=== PATIENT | female | born 1980 | race American Indian/Alaskan Native ===

== ENCOUNTER 2017-03-07 00:38 | Emergency (ER) | payer SELFPAY ==
[2017-03-07] MEDS ORDERED: KEPPRA 1,000 MG/NS 0.75% 100ML 1,000 MG/100 ML BAG IV ONE (01:03)
[2017-03-07 01:23] LABS: Basophils # (Auto) 0.1 K/mm3 (0.0-0.1); Basophils % (Auto) 1.2 % (0.0-1.8); Eosinophils # (Auto) 0.1 K/mm3 (0.0-0.4); Eosinophils % (Auto) 1.9 % (0.0-4.3); Hematocrit 35.6 % (30.3-42.9); Hemoglobin 11.6 gm/dl (10.1-14.3); Lymphocytes # (Auto) 1.8 K/mm3 (1.2-5.4); Lymphocytes % (Auto) 38.2 % (13.4-35.0); Mean Corpuscular HGB Conc 33 % (30-34); Mean Corpuscular Volume 75 fl (79-97); Monocytes # (Auto) 0.3 K/mm3 (0.0-0.8); Monocytes % (Auto) 7.5 % (0.0-7.3); Platelet Count 277 K/mm3 (140-440); Red Blood Count 4.74 M/mm3 (3.65-5.03); Red Cell Distribution Width 14.7 % (13.2-15.2)
[2017-03-07 01:26] LABS: Mean Corpuscular Hemoglobin 24 pg (28-32)
[2017-03-07 01:43] LABS: BUN/Creatinine Ratio 15; Blood Urea Nitrogen 9 mg/dL (7-17); Calcium 8.5 mg/dL (8.4-10.2); Hemolysis Index 45
[2017-03-07] MEDS ORDERED: BENADRYL IV ONE (02:01)
[2017-03-07] MEDS ORDERED: REGLAN IV ONE (02:02)
[2017-03-07 02:09] LABS: Bilirubin,Urine NEG (Negative); Blood,Urine SM (Negative); Color,Urine Yellow (Yellow); Mucus,Urine FEW /HPF; Nitrite,Urine NEG (Negative); Protein,Urine <15 mg/dL mg/dL (Negative); Urobilinogen,Urine < 2.0 mg/dL (<2.0)
[2017-03-07 02:11] LABS: HCG Qualitative,Urine Negative (Negative)
[2017-03-07 02:22] VITALS: BP 145/82
[2017-03-07] MEDS ORDERED: K-DUR PO ONE (02:36)
--- NOTE | 2017-03-07 02:38 | Emergency Department Report ---
ED General Adult HPI - General Chief complaint: Headache Stated complaint: SEIZURE Time Seen by Provider: 03/07/17 02:35 Source: patient, RN notes reviewed Mode of arrival: Stretcher Limitations: No Limitations - History of Present Illness Initial comments: This is a 37-year-old female who is previously unknown to this provider, she reports a past medical history of seizure disorder, and supposed to be on Keppra , 500 mg twice daily, recently ran out of her medications. Patient reports that she's not been or delivered or given within the past 2 months. She presents to the ER requesting a refill on her Keppra medication, and complaining of headache. The headache is frontal and throbbing. It is not sudden or thunderclap in nature. It did not reach maximal intensity within an hour. It is consistent with prior headaches. Patient reports that while she has not had a seizure, she feels like this headache is the same headache that she always gets when she is "about to have a seizure." The headache does not radiate anywhere. It was relieved with diphenhydramine and Reglan, which were prescribed by myself. -: Gradual Location: head Severity scale (0 -10): 4 Quality: aching Improves with: medication Associated Symptoms: headaches. denies: confusion, chest pain, cough, diaphoresis, fever/chills, loss of appetite, malaise, shortness of breath, syncope, weakness - Related Data Previous Rx's Medication Instructions Recorded Last Taken Type levETIRAcetam [Keppra TAB] 500 mg PO BID #60 tablet 03/07/17 Unknown Rx Allergies Allergy/AdvReac Type Severity Reaction Status Date / Time No Known Allergies Allergy Verified 03/07/17 03:11 ED Review of Systems ROS: Stated complaint: SEIZURE Other details as noted in HPI ED Past Medical Hx - Past Medical History Previous Medical History?: Yes Hx Seizures: Yes (for 3 years) - Surgical History Past Surgical History?: No - Social History Smoking Status: Never Smoker Substance Use Type: None - Medications Home Medications: Home Medications Medication Instructions Recorded Confirmed Last Taken Type levETIRAcetam [Keppra TAB] 500 mg PO BID #60 tablet 03/07/17 Unknown Rx ED Physical Exam - General Limitations: No Limitations General appearance: alert, in no apparent distress - Head Head exam: Present: atraumatic, normocephalic - Eye Eye exam: Present: normal appearance, PERRL, EOMI, other (visual acuity intact to finger counting, color perception, reading at a close distance). Absent: nystagmus - ENT ENT exam: Present: normal exam, normal orophraynx, mucous membranes moist, normal external ear exam - Neck Neck exam: Present: normal inspection, full ROM - Respiratory Respiratory exam: Present: normal lung sounds bilaterally. Absent: respiratory distress, chest wall tenderness - Cardiovascular Cardiovascular Exam: Present: regular rate, normal rhythm, normal heart sounds. Absent: systolic murmur, diastolic murmur, rubs, gallop - GI/Abdominal GI/Abdominal exam: Present: soft, normal bowel sounds. Absent: distended, tenderness, guarding, rebound, rigid, pulsatile mass - Extremities Exam Extremities exam: Present: normal inspection, full ROM, normal capillary refill. Absent: pedal edema, joint swelling, calf tenderness - Back Exam Back exam: Present: normal inspection, full ROM. Absent: tenderness, CVA tenderness (R), paraspinal tenderness, vertebral tenderness - Neurological Exam Neurological exam: Present: alert, oriented X3, CN II-XII intact, normal gait, other (Extraocular movements intact. Tongue midline. No facial droop. Facial sensation intact to light touch in the V1, V2, V3 distribution bilaterally. 5 and 5 strength in 4 extremities.. Sensation is intact to light touch in 4 extremities.). Absent: motor sensory deficit - Psychiatric Psychiatric exam: Present: normal affect, normal mood - Skin Skin exam: Present: warm, dry, intact, normal color. Absent: rash ED Course Vital Signs 03/07/17 03/07/17 03/07/17 00:44 00:51 02:21 Temperature 98.1 F Pulse Rate 88 80 Respiratory 18 18 16 Rate Blood Pressure 158/99 Blood Pressure 158/99 145/82 [Left] O2 Sat by Pulse 100 100 100 Oximetry ED Medical Decision Making - Lab Data Result diagrams: 03/07/17 00:55 03/07/17 00:55 Vital Signs 03/07/17 03/07/17 03/07/17 00:44 00:51 02:21 Temperature 98.1 F Pulse Rate 88 80 Respiratory 18 18 16 Rate Blood Pressure 158/99 Blood Pressure 158/99 145/82 [Left] O2 Sat by Pulse 100 100 100 Oximetry Lab Results 03/07/17 03/07/17 03/07/17 Range/Units 00:55 00:55 01:37 WBC 4.6 (4.5-11.0) K/mm3 RBC 4.74 (3.65-5.03) M/mm3 Hgb 11.6 (10.1-14.3) gm/dl Hct 35.6 (30.3-42.9) % MCV 75 L (79-97) fl MCH 24 L (28-32) pg MCHC 33 (30-34) % RDW 14.7 (13.2-15.2) % Plt Count 277 (140-440) K/mm3 Lymph % (Auto) 38.2 H (13.4-35.0) % [place] % (Auto) 7.5 H (0.0-7.3) % Eos % (Auto) 1.9 (0.0-4.3) % Baso % (Auto) 1.2 (0.0-1.8) % Lymph # 1.8 (1.2-5.4) K/mm3 [place] # 0.3 (0.0-0.8) K/mm3 Eos # 0.1 (0.0-0.4) K/mm3 Baso # 0.1 (0.0-0.1) K/mm3 Seg Neutrophils % 51.2 (40.0-70.0) % Seg Neutrophils # 2.4 (1.8-7.7) K/mm3 Sodium 137 (137-145) mmol/L Potassium 3.2 L (3.6-5.0) mmol/L Chloride 99.3 (98-107) mmol/L Carbon Dioxide 23 (22-30) mmol/L Anion Gap 18 mmol/L BUN 9 (7-17) mg/dL Creatinine 0.6 L (0.7-1.2) mg/dL Estimated GFR > 60 ml/min BUN/Creatinine Ratio 15 % Glucose 84 (65-100) mg/dL Calcium 8.5 (8.4-10.2) mg/dL Urine Color Yellow (Yellow) Urine Turbidity Clear (Clear) Urine pH 6.0 (5.0-7.0) Ur Specific [place] 1.019 (1.003-1.030) Urine Protein <15 mg/dl (Negative) mg/dL Urine Glucose (UA) Neg (Negative) mg/dL Urine Ketones Neg (Negative) mg/dL Urine Blood Sm (Negative) Urine Nitrite Neg (Negative) Urine Bilirubin Neg (Negative) Urine Urobilinogen < 2.0 (<2.0) mg/dL Ur Leukocyte Esterase Neg (Negative) Urine WBC (Auto) 2.0 (0.0-6.0) /HPF Urine RBC (Auto) 2.0 (0.0-6.0) /HPF U Epithel Cells (Auto) < 1.0 (0-13.0) /HPF Urine Mucus Few /HPF Urine HCG, Qual Negative (Negative) - Radiology Data Radiology results: report reviewed, image reviewed Noncontrast CT scan of the brain, interpreted by radiology: No acute disease - Medical Decision Making Differential diagnosis, including but not limited to: Medication refill, migraine headache, tension headache, cluster headache Assessment and plan: That he [id number] female requesting medication refill and complaining of headache. She is afebrile with reassuring vital signs, walks with a steady gait, clinically sober, has a GCS of 15, with an NIH score of 0. Her laboratory studies are unremarkable, her neurologic examination is age appropriate and within normal limits, no noncontrast CT scan of the brain, ordered by nursing prior to my evaluation, was negative for acute disease. Based on the history and physical, I do not find the patient's presentation to be consistent with ischemic or hemorrhagic stroke, and she does not have any physical exam findings or historical findings to suggest meningitis or intracranial hemorrhage/infection. The patient's potassium was repleted, she was able to tolerate liquid feeds, and she will be discharged with a prescription for her Keppra medication. Critical care attestation.: If time is entered above; I have spent that time in minutes in the direct care of this critically ill patient, excluding procedure time. ED Disposition Clinical Impression: Headache, Medication refill Disposition: DC-01 TO HOME OR SELFCARE Is pt being admited?: No Does the pt Need Aspirin: No Condition: Stable Instructions: Recurrent Seizures Adult (ED) Additional Instructions: Take medication as directed. Follow up with the primary care doctor or neurology specialist within the next 3-4 weeks. Return to the ER readily with new pain, worsened pain, migration of pain, fevers, chills, lethargy, irritability, projectile vomiting, change in mental status, confusion, inability to tolerate liquid feeds. Follow up with any of the listed physicians within the recommended timeframe. Referrals: JOSE MANUEL DURAN MD [Primary Care Provider] - 3-5 Days NASREEN CAMPA MD [Staff Physician] - 3-5 Days CHUY GA MD [Staff Physician] - 3-5 Days DARIO CAIN MD [Referring] - 3-5 Days
--- NOTE | 2017-03-07 02:47 | Cat Scan Report ---
FINAL REPORT EXAM: CT HEAD/BRAIN WO CON HISTORY: Headache COMPARISON: None available. TECHNIQUE: Axial images obtained skull base through vertex. FINDINGS: No acute intracranial hemorrhage, midline shift or pathologic extra axial fluid collection. Ventricles and cisterns are normal in size and configuration for the patient's age. Hawthorne-white differentiation preserved. Calvarium grossly intact. The visualized ocular globes are grossly unremarkable. Visualized para-nasal sinuses and mastoid air cells are clear. IMPRESSION: No grossly acute intracranial abnormality.
== END 2017-03-07 04:22 | disposition home or self-care (01) ==
LOC: ED 00:38
DX: R51 Headache (principal)
CPT/HCPCS: 36415; 70450; 80048; 81001; 81025; 85025; 96374; 96375; 99285; J1200; J1953; J2765

== ENCOUNTER 2019-03-11 22:06 | Emergency (ER) | payer SELFPAY ==
[2019-03-11 22:23] VITALS: BP 160/113
--- NOTE | 2019-03-11 22:33 | Emergency Department Report ---
ED Alcohol HPI - General Chief Complaint: Alcohol Stated Complaint: ALCOHOL WITHDRAWL Time Seen by Provider: 03/11/19 22:31 Source: patient Mode of arrival: Ambulatory Limitations: No Limitations - History of Present Illness Initial Comments: Patient is a 39-year-old female that presents emergency room with complaints of wanting detox. Patient states her last drink was yesterday at noon. Patient states she had a long history of drinking. Patient has a past medical history of seizures and is currently taking Keppra. Patient she has not had a seizure for many years. Patient denies suicidal or homicidal ideation. Patient denies depression. Patient denies anxiety. Patient denies any physical complaints. MD Complaint: desires rehab Chronic Alcohol Use: Yes Previous Visits for Alcohol Intoxication?: No Recent Trauma: No Associated Symptoms: denies other symptoms. denies: nausea, vomiting, syncope, seizure, diaphoresis, tremors, abdominal pain, hematemesis, melena, depression, suicidality Treatments Prior to Arrival: none - Related Data Previous Rx's Medication Instructions Recorded Last Taken Type levETIRAcetam [Keppra TAB] 500 mg PO BID #60 tablet 03/07/17 Unknown Rx Allergies Allergy/AdvReac Type Severity Reaction Status Date / Time No Known Allergies Allergy Verified 03/07/17 03:11 ED Review of Systems ROS: Stated complaint: ALCOHOL WITHDRAWL Other details as noted in HPI Constitutional: denies: chills, fever Eyes: denies: eye pain, eye discharge, vision change ENT: denies: ear pain, throat pain Respiratory: denies: cough, shortness of breath, wheezing Cardiovascular: denies: chest pain, palpitations Endocrine: no symptoms reported Gastrointestinal: denies: abdominal pain, nausea, diarrhea Genitourinary: denies: urgency, dysuria, discharge Musculoskeletal: denies: back pain, joint swelling, arthralgia Skin: denies: rash, lesions Neurological: denies: headache, weakness, paresthesias Psychiatric: denies: anxiety, depression Hematological/Lymphatic: denies: easy bleeding, easy bruising ED Past Medical Hx - Past Medical History Previous Medical History?: Yes Hx Hypertension: Yes (not on meds) Hx Seizures: Yes (for 3 years) - Surgical History Past Surgical History?: No - Social History Smoking Status: Current Every Day Smoker Substance Use Type: Alcohol - Medications Home Medications: Home Medications Medication Instructions Recorded Confirmed Last Taken Type levETIRAcetam [Keppra TAB] 500 mg PO BID #60 tablet 03/07/17 Unknown Rx ED Physical Exam - General Limitations: No Limitations General appearance: alert, in no apparent distress - Head Head exam: Present: atraumatic, normocephalic - Eye Eye exam: Present: normal appearance - ENT ENT exam: Present: mucous membranes moist - Neck Neck exam: Present: normal inspection - Respiratory Respiratory exam: Present: normal lung sounds bilaterally. Absent: respiratory distress - Cardiovascular Cardiovascular Exam: Present: regular rate, normal rhythm. Absent: systolic murmur, diastolic murmur, rubs, gallop - GI/Abdominal GI/Abdominal exam: Present: soft, normal bowel sounds - Extremities Exam Extremities exam: Present: normal inspection - Back Exam Back exam: Present: normal inspection - Neurological Exam Neurological exam: Present: alert, oriented X3 - Psychiatric Psychiatric exam: Present: normal affect, normal mood - Skin Skin exam: Present: warm, dry, intact, normal color. Absent: rash ED Course Vital Signs 03/11/19 22:19 Temperature 98 F Pulse Rate 88 Respiratory 18 Rate Blood Pressure 160/113 O2 Sat by Pulse 100 Oximetry - Reevaluation(s) Reevaluation #1: I discussed all results with patient. Discussed plan of care outpatient. Patient agrees to plan of care. Patient given outpatient substance abuse programs. Patient given discharge instructions. Patient voiced understanding of discharge instructions. Patient is stable for discharge. Patient discharged home. 03/11/19 23:53 ED Medical Decision Making - Lab Data Result diagrams: 03/11/19 22:38 03/11/19 22:38 - Medical Decision Making Patient is a 39-year-old female that presents emergency room with complaints of desiring detox. Patient's last drink was yesterday at noon. Patient had a medical clearance done and patient is medically cleared for a rehabilitation admission. Patient discharged home and with substance abuse program status. - Differential Diagnosis desire detox, alcohol abuse. Critical care attestation.: If time is entered above; I have spent that time in minutes in the direct care of this critically ill patient, excluding procedure time. ED Disposition Clinical Impression: Desire for detoxification, Alcohol abuse Disposition: DC-01 TO HOME OR SELFCARE Is pt being admited?: No Does the pt Need Aspirin: No Condition: Stable Instructions: Abuse of Alcohol (ED) Additional Instructions: Patient to follow up with primary care in 2-3 days. Patient to leave the ER and go directly to a substance abuse program. Patient given substance abuse program information. Patient to return to ER if condition worsens. Patient increase water. Referrals: PRIMARY CARE, [Primary Care Provider] - 2-3 Days Time of Disposition: 23:55
[2019-03-11 22:59] LABS: Basophils % (Auto) 0.9 % (0.0-1.8); Eosinophils # (Auto) 0.1 K/mm3 (0.0-0.4); Eosinophils % (Auto) 1.4 % (0.0-4.3); Hematocrit 38.5 % (30.3-42.9); Hemoglobin 12.5 gm/dl (10.1-14.3); Lymphocytes # (Auto) 1.3 K/mm3 (1.2-5.4); Lymphocytes % (Auto) 30.1 % (13.4-35.0); Mean Corpuscular HGB Conc 33 % (30-34); Mean Corpuscular Volume 75 fl (79-97); Monocytes # (Auto) 0.5 K/mm3 (0.0-0.8); Platelet Count 322 K/mm3 (140-440); Red Blood Count 5.12 M/mm3 (3.65-5.03); Red Cell Distribution Width 15.1 % (13.2-15.2)
[2019-03-11 23:18] LABS: BUN/Creatinine Ratio 16; Blood Urea Nitrogen 11 mg/dL (7-17); Calcium 9.3 mg/dL (8.4-10.2); Hemolysis Index 2
== END 2019-03-11 23:45 | disposition home or self-care (01) ==
LOC: ED 22:06
DX: F10.239 Alcohol dependence with withdrawal, unspecified (principal); I10 Essential (primary) hypertension; F17.200 Nicotine dependence, unspecified, uncomplicated; Z79.899 Other long term (current) drug therapy
CPT/HCPCS: 36415; 80048; 80320; 85025; G0480